=== PATIENT | male | born 1965 | race Caucasian/White ===

== ENCOUNTER 2020-07-03 13:56 | Emergency (ER) | payer BC ==
[~2020-07-03] VITALS: Ht 185.4 cm; Wt 101.2 kg
[2020-07-03 14:00] VITALS: BP 135/77
[2020-07-03] MEDS ORDERED: Lidocaine 2% 20mg/ml/EPI 0.01mg/ml 20ml INJ ONE (14:30)
--- NOTE | 2020-07-03 14:36 | NUR ---
ED Nurse Note: Patient presents to ER due to abscess on the RLL, lateral side x 1 week; seen by MD and patient is on doxycycline. Reports no fever, chills or N/V. Approximately 6cm x 6cm round, raised area with redness with cream colored drainage. No red streak goes to upper leg. Swelling on RLE noted. Patient able to wiggle right toes, sensation remained intact.
--- NOTE | 2020-07-03 14:51 | NUR ---
ED Nurse Note: Informed consent for incision and drainage of right lower leg abscess obtained by Camilla Singh
--- NOTE | 2020-07-03 15:45 | Emergency Room Report ---
History of Present Illness General Chief Complaint: Skin Rash/Abscess Source: Patient Present Illness HPI 55-year-old male who is HIV positive with normal CD4 cell count presents to the emergency department complaining of 4 out of 10 severity localized pain, swelling and erythema to the right lower extremity progressive x1 week. Patient reports that symptoms have been getting more severe and states that the area is now "come to head "patient reports initial injury was from a spider bite. He denies fevers or chills. He denies posterior calf pain or tenderness. Patient reports he is up-to-date with his tetanus vaccine. Patient reports he was sent here to the emergency department by his primary care doctor for incision and drainage. Patient denies rash or lesions elsewhere on the body. 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 COVID-19 Screening: Negative COVID-19 COVID-19 Testing Source: [employer]ATION[employer] DIRECTOR Patient History Past Medical History: see triage record Past Surgical History: none Pertinent Family History: none Immunizations: UTD Reviewed Nursing Documentation: PMH: Agreed; PSxH: Agreed Nursing Documentation-PMH Past Medical History: No History, Except For Review of Systems All Other Systems: negative except mentioned in HPI Physical Exam Vital Signs Date Time Temp Pulse Resp B/P (MAP) Pulse Ox O2 Delivery O2 Flow Rate FiO2 07/03/20 14:00 97.5 84 16 135/77 (96) 94 Room Air Sp02 EP Interpretation: reviewed, normal General Appearance: no apparent distress, alert, GCS 15, non-toxic Head: normocephalic, atraumatic Eyes: bilateral eye normal inspection, bilateral eye PERRL ENT: hearing grossly normal, normal voice Neck: full range of motion Respiratory: chest non-tender, lungs clear, normal breath sounds, speaking full sentences Cardiovascular #1: regular rate, rhythm, no edema, normal capillary refill Musculoskeletal: normal range of motion, gait/station normal, non-tender Neurologic: alert, motor strength/tone normal, oriented x3, sensory intact, responsive, speech normal Psychiatric: judgement/insight normal Skin: other - soft tissue cellulitis and abscess that is approximately 3 cm in diameter with induration, erythema and warmth upon palpation to the right lower extremity on the lateral aspect. Lymphatic: no adenopathy Procedures Incision and Drainage Incision and Drainage : Consent: Verbal Site: Lateral aspect of the right calf Blade Size: 11 I & D Procedure: betadine prep, sterile drapes applied, sterile dressing applied Wound Location: lower extremity Wound's Depth, Shape: linear Wound Length (cm): 1 Wound Explored: contaminated - scant amount of pus expressed, innoculations were broken up with surgical forceps Irrigated w/ Saline (ccs): 30 Anesthesia: Lidocaine w/ Epi Volume Anesthetic (ccs): 2 Splint Applied?: No Sling Applied?: No Patient Tolerated: Well Complications: None Medical Decision Making PA Attestation Dr. Pacheco is my supervising Physician whom patient management has been discussed with. Diagnostic Impression: Primary Impression: Abscess Additional Impression: Cellulitis and abscess of leg ER Course 55-year-old male who is HIV positive with normal CD4 cell count presents to the emergency department complaining of 4 out of 10 severity localized pain, swelling and erythema to the right lower extremity progressive x1 week. Patient reports that symptoms have been getting more severe and states that the area is now "come to head "patient reports initial injury was from a spider bite. He denies fevers or chills. He denies posterior calf pain or tenderness. Patient reports he is up-to-date with his tetanus vaccine. Patient reports he was sent here to the emergency department by his primary care doctor for incision and drainage. Patient denies rash or lesions elsewhere on the body. Ddx considered but are not limited to cellulitis, abscess, cystic acne, necrotizing fasciitis, insect bite. Vital signs: are WNL, pt. is afebrile H&PE are most consistent with soft tissue cellulitis and abscess that is approximately 3 cm in diameter with induration, erythema and warmth upon palpation to the right lower extremity on the lateral aspect. ORDERS: none required at this time, the diagnosis is clinical ED INTERVENTIONS: -I & D. - Wound Dressing by RN. D/w pt. PCP follow up and Oral Abx. Pt. given strict ED return precautions. Pt. instructed to keep area clean and dry, no submersion in water. Pt. to check wound daily. DISCHARGE: At this time pt. is stable for d/c to home. Will provide printed patient care instructions, and any necessary prescriptions. Care plan and follow up instructions have been discussed with the patient prior to discharge. Last Vital Signs Date Time Temp Pulse Resp B/P (MAP) Pulse Ox O2 Delivery O2 Flow Rate FiO2 07/03/20 14:00 97.5 84 16 135/77 (96) 94 Room Air Disposition: HOME, SELF-CARE Condition: Stable Scripts Hydrocodone Bit/Acetaminophen 5-325* (NORCO 5-325 TABLET*) 1 Each Tablet 1 TAB ORAL Q6H PRN for FOR PAIN, #9 TAB 0 Refills Prov: Samantha Stewart 07/03/20 Clindamycin Hcl (CLINDAMYCIN HCL) 300 Mg Capsule 300 MG ORAL FOUR TIMES A DAY for 7 Days, #28 CAP Prov: Samantha Stewart 07/03/20 Patient Instructions: Abscess Additional Instructions: Take medications as directed. Follow up with a Primary Care Provider in 3-5 days, even if your symptoms have resolved. Return sooner to ED if new symptoms occur, or current symptoms become worse. - Please note that this Emergency Department Report was dictated using [employer] technology software, occasionally this can lead to erroneous entry secondary to interpretation by the dictation equipment. Samantha Stewart Jul 03, 2020 15:45
[2020-07-03] MEDS ORDERED: CLINDAMYCIN HC300 MG ORAL (15:47)
[2020-07-03] MEDS ORDERED: NORCO 5-325 TA1 EAC1 ORAL (15:47)
[2020-07-03] MEDS ORDERED: HYDROcodone/Acetamin 5/325 tab ORAL ONE (16:00)
--- NOTE | 2020-07-03 16:15 | NUR ---
ED Nurse Note: Patient foung leaving the emergency room. 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 Patient states he applied clean, dry dressing over the wound, stating 'I can take care of myself'.D/C instruction and prescription given. Patient verbalized understanding of it. All questions were answered. Patient ambulated out with steady gait with all his belongings.
== END 2020-07-03 16:16 | disposition home or self-care (01) ==
LOC: EMR 14:40
DX: L02.415 Cutaneous abscess of right lower limb (principal); L03.115 Cellulitis of right lower limb
CPT/HCPCS: 10060; 99282